=== PATIENT | male | born 1990 | race Caucasian/White ===

== ENCOUNTER → 2020-05-03 09:25 | Outpatient (CLI) | payer OTHER, SELFPAY ==
[2018-05-26 19:58] VITALS: BMI 28.7
== END ==
PROVIDERS: PCP Family Medicine; Referring Provider Family Medicine; Visit Provider Family Medicine
DX: Z20.828 Contact with and (suspected) exposure to other viral communicable diseases (principal)
CPT/HCPCS: 87635; C9803; U0005; U0003